=== PATIENT | male | born 2005 | race Two or more races ===

== ENCOUNTER 2024-01-15 22:38 | Emergency (ER) | payer MEDICAID ==
[~2024-01-15] VITALS: Ht 180.3 cm; Wt 79.4 kg
[2024-01-16] MEDS ORDERED: CYCL-837 PO (01:50)
[2024-01-16] MEDS ORDERED: ACET500T58 PO (01:50)
[2024-01-16 03:15] VITALS: BP 114/65; PULSE 78; RESP 18; TEMP 98.7; O2SAT 100
== END 2024-01-16 03:28 | disposition home or self-care (01) ==
LOC: ER 22:38
DX: S39.012A Strain of muscle, fascia and tendon of lower back, initial encounter (principal); S70.02XA Contusion of left hip, initial encounter; S09.90XA Unspecified injury of head, initial encounter; Z88.6 Allergy status to analgesic agent; V26.49XA Other motorcycle driver injured in collision with other nonmotor vehicle in traffic accident, initial encounter; Y93.89 Activity, other specified; Y92.89 Other specified places as the place of occurrence of the external cause; Y99.8 Other external cause status
CPT/HCPCS: 70450; 72100; 72170